=== PATIENT | female | born 1985 | race Caucasian/White ===

== ENCOUNTER 2016-06-24 18:38 | Emergency (ER) | payer SELFPAY ==
--- NOTE | 2016-06-24 20:46 | ED NURSING NOTES ---
Clinical Report - Nurses [facility] [place] [address] 06/24/2016 18:38 Patient: JUDY ASCENCIO TRIAGE Acuity: LEVEL 4. Chief Complaint: INJURY TO LEFT SHOULDER. Alert. No acute distress. SEPSIS SCREEN: Sepsis Screen. Negative (no infection suspected/documented). SHAE COMA SCORE: Shae Coma Scale: 15- eyes open spontaneously (4); best verbal response- oriented x 4 (5); best motor response- obeys commands (6). --18:59 Gisela Mckeon R.N. 18:51 06/24/16. BP: 143/87. HR: 87. RR: 16. O2 saturation: 100% on room air. Temp: 98.1 F (oral). Pain level now: 10/07. --18:59 Gisela Mckeon R.N. Weight: 88.4 kg stated. Height/Length: 66 inches Per Patient. BMI: 31.5. --18:56 Gisela Mckeon R.N. Medications Zoloft Oral 25 mg, at bedtime (unsure of dose). --18:54 Gisela Mckeon R.N. Medication/allergy information source: the patient. --18:59 Gisela Mckeon R.N. Allergies Demerol. --18:54 Gisela Mckeon R.N. History Arrived by private vehicle. Historian: patient. Accompanied by friend. Primary physician (Sandie Rocha). This occurred just prior to arrival. ( Pt reports pain from her left shoulder to her hand. She denies injury. Pt reports a history of anxiety and recently was started on welbutrin, but stopped taking it after two doses, last dose four days ago. Pt denies chest pain, but states chest feels "tight".). SOCIAL HX: Current every day heavy tobacco smoker (cigarette)- less than 1 pack per day. Occasional alcohol use. No drug use. FALL RISK ASSESSMENT: Fall risk assessment completed. No fall risk identified. NUTRITIONAL RISK ASSESSMENT: The nutritional risk assessment revealed no deficiencies. FUNCTIONAL ASSESSMENT: Functional assessment: no impairments noted. LEARNING NEEDS ASSESSMENT: The learning needs assessment revealed no barriers. SKIN INTEGRITY ASSESSMENT: Skin integrity risk assessment completed. No skin integrity risk identified. --18:59 Gisela Mckeon R.N. PROBLEMS: Anxiety Reaction. Atypical Chest Pain. Gastritis. Back Pain. Hypertension. --18:54 Gisela Mckeon R.N. ADDITIONAL SURGERIES: Cholecystectomy. --18:54 Gisela Mckeon R.N. Assessment GENERAL / NEURO / PSYCH: Alert. Oriented X 4. Appears in no acute distress. Patient appears calm and cooperative. RESPIRATORY: Respirations not labored. CVS: Capillary refill less than 2 seconds. GI / : Abdomen nontender. SKIN: Mucous membranes are pink. Skin is warm and dry. --18:59 Gisela Mckeon R.N. Interventions ID band on patient. To treatment room. --18:59 Gisela Mckeon R.N. PHYSICAL ASSESSMENT 18:59 06/24/16. Ambulatory to room. GENERAL / NEURO / PSYCH: Oriented X 4. Alert. Appears in no acute distress. EXTREMITIES: Capillary refill is less than 2 seconds in the extremities. Extremity pulses are within normal limits. Extremities exhibit normal ROM. Neuro-vascular status intact to the extremity. SKIN: Skin intact. Skin is warm and dry. --18:59 Gisela Mckeon R.N. NURSING PROGRESS NOTES 18:06/24/16. Patient gowned. Two patient identifiers checked. Call light placed in reach. Side rails up x 1. Bed placed in lowest position. Brakes of bed on. Patient ready for evaluation- chart flagged and PA notified. --18:59 Gisela Mckeon R.N. EKG time: (19:11). EKG was performed by a tech and shown to the PA. --19:12 Darshana Ace Checked patient name and birthdate: patient confirmed. Instructions provided to collect clean catch urine and patient verbalized understanding. Clean catch urine collected with return of yellow-colored clear urine; sample sent to lab for urinalysis and drug screen. Specimen labeled in the presence of the patient. --19:21 Gisela Mckeon R.N. 19:06/24/16. Urine test negative. --19:22 Gisela Mckeon R.N. 19:58 06/24/2016 Site #1 started via IV in the right hand with an 20g angiocath; one attempt. Blood drawn: rainbow set. Labeled in the presence of the patient and sent to the lab. Saline lock flushed. --19:58 Paige Braden R.N. Patient waiting for evaluation and lab and radiology results. --20:41 Paige Braden R.N. 21:05 06/24/2016 Site #1 removed upon discharge. Bandaid applied. --22:27 Paige Braden R.N. DISPOSITION / DISCHARGE Departure time: 21:Jun 24 2016. --22:28 Paige Braden R.N. 22:27 06/24/16. BP: 119/56. HR: 73. RR: 18. O2 saturation: 100%. Pain level now 0/10. --22:28 Paige Braden R.N. Locked/Released at 06/24/2016 22:36 by Paige Braden R.N.
--- NOTE | 2016-06-24 20:46 | ED CLINICAL REPORT ---
Clinical Report - Physicians/Mid Levels [facility] [address] [place] [address] 06/24/2016 18:38 Patient: JUDY ASCENCIO Time Seen: 19:04 Jun 24 2016. Arrived- By private vehicle. Historian- patient. HISTORY OF PRESENT ILLNESS Chief Complaint: left arm paresthesias. This started today and is still present. No fatigue. Denies sleep problem. (Patient reports developing left arm hand paresthesias in the last few hours. With no activity. Denies any injury. Denies any history of similar. Denies any history of DVT, pulmonary concerns. Denies any family history of sudden or history of DE at young age or any history of DE in general. Denies any prior injuries to her neck or any other injuries to her elbow. Denies any pain with movement. Denies any shortness of breath or chest pain. Denies any back pain. Denies any headache or neck pain or jaw pain. Denies any recent illness or difficulty swallowing.). REVIEW OF SYSTEMS No sore throat, sinus drainage, cough, difficulty breathing or vomiting. No diarrhea, back pain or calf pain. All systems otherwise negative, except as recorded above. PAST HISTORY Problems: Anxiety Reaction. Atypical Chest Pain. Gastritis. Back Pain. Hypertension. LNMP - Last Normal Menstrual Period. Additional Surgeries: Cholecystectomy. Medications: Zoloft Oral 25 mg, at bedtime (unsure of dose). Allergies: Demerol. SOCIAL HISTORY Smoker- current status unknown. Alcohol use. ADDITIONAL NOTES The nursing notes have been reviewed. PHYSICAL EXAM Vital Signs: 06/24/2016 18:51 BP: 143/87. HR: 87. RR: 16. O2 saturation: 100%. Temp: 98.1 F. Pain level now: 7/10. Appearance: Alert. Eyes: Eyes normal inspection. ENT: Nose normal. Pharynx normal. Neck: Normal inspection. No lymphadenopathy. CVS: Normal heart rate and rhythm. Heart sounds normal. Rhythm normal. Respiratory: No respiratory distress. Breath sounds normal. Abdomen: No visible injury. Soft. Bowel sounds normal. No abdominal tenderness. The bowel sounds are not abnormal. Back: Normal inspection. No CVA tenderness. Skin: Normal skin color. Neuro: Oriented X 3. No alteration in mental status. No motor deficit. No sensory deficit. LABS, X-RAYS, AND EKG EKG: EKG time: (1910). No acute process. No acute ischemia. Rate: 74. Normal P waves. Normal TORRIE. Normal QRS complex. Normal axis. Normal ST and T waves and QT. The study has been interpreted contemporaneously. The EKG appears to be a good tracing. Chest X-ray: No acute disease. Normal lung markings present. Normal heart size. No fracture. No infiltrate, mass or pulmonary contusion. Laboratory Tests: CBC w Diff: (ALEX: 06/24/2016 19:50) ( [facility] 06/24/2016 20:01) Final results Test Result Flag Units (Reference) WHITE BLOOD COUNT 12.3 H K/uL (4.5-11.5) RED BLOOD COUNT 4.35 M/uL (4.00-5.20) HEMOGLOBIN 12.8 gm/dL (12.0-16.0) HEMATOCRIT 38.6 % (36.0-46.0) MEAN CELL VOLUME 89 fL (80-100) MEAN CORPUSCULAR HGB 29 pg (26-34) MEAN CORPUSCULAR HGB CONC 33 g/dL (31-37) RED CELL DISTRIBUTION WIDTH 12.8 % (11.6-14.8) PLATELET COUNT 320 K/uL (150-400) LYMPH % 25.5 % (25-40) MONO % 4.8 % (3-14) GRANULOCYTE % 69.7 (53-90) Urine Drug Screen: (ALEX: 06/24/2016 19:25) ( [facility] 06/24/2016 20:00) Final results Test Result Flag Units (Reference) AMPHETAMINE/METHAMPHETAMINE NEGATIVE (NEGATIVE) BARBITURATE NEGATIVE (NEGATIVE) BENZODIAZEPINE NEGATIVE (NEGATIVE) CANNABINOID POSITIVE H (NEGATIVE) COCAINE NEGATIVE (NEGATIVE) ECSTASY NEGATIVE (NEGATIVE) METHADONE NEGATIVE (NEGATIVE) OPIATE NEGATIVE (NEGATIVE) The urine drug screen is a qualitative screening test fordrug overdose and abuse. All screen results should beconsidered as presumptive.Drugs screened for are as follows:BenzodiazepinesCocaineAmphetamines/MetamphetaminesTHC (Tetrahydrocannabinol)OpiatesBarbituratesEcstasyMethadonePositive results are unconfirmed. For confirmation, notifythe lab for the specimen to be sent to the reference lab.All confirmations must be performed by a differentmethodology.The ingestion of natural herbal and plant productscontaining Ephedra/Ephedra metabolites can produce in urineone or more substances capable of cross reacting withamphetamine/methamphetamine immunoassays. These testsprovide a preliminary result only. A more specificalternative chemical method must be used to obtain aconfirmed analytical result. CHEM 13 PANEL: (ALEX: 06/24/2016 19:50) ( M[facility] 06/24/2016 20:30) Final results Test Result Flag Units (Reference) GLUCOSE 83 mg/dL (70-110) BUN 14 mg/dL (7-18) CREATININE 0.6 mg/dL (0.6-1.3) Estimated GFR >60 mL/min Estimated GFR- >60 mL/min Note: Persistent reduction over 3 months in eGFR<60 mL/min/1.73 m2 defines CKD. Patients with eGFR values>=60 mL/min/1.73 m2 may also have CKD if evidence ofpersistent proteinuria. Additional information may be foundat www.kidney.org. SODIUM 146 H mmol/L (136-145) POTASSIUM 3.2 L mmol/L (3.5-5.1) CHLORIDE 110 H mmol/L (98-107) CARBON DIOXIDE 22 mmol/L (21-32) CALCIUM 7.7 L mg/dL (8.5-10.1) TOTAL PROTEIN 6.4 g/dL (6.4-8.2) ALBUMIN 3.4 g/dL (3.3-5.0) BILIRUBIN, TOTAL 0.2 mg/dL (0.0-1.0) ALKALINE PHOSPHATASE 61 U/L (46-116) AST (SGOT) 13 L U/L (15-37) ALT (SGPT) 22 U/L (12-78) CPK 84 U/L (24-260) MAGNESIUM 1.5 L mg/dL (1.8-2.4) TROPONIN I <0.05 ng/mL (0.00-1.5) TROPONIN REFERENCE RANGE:<0.1 NEGATIVE0.1-1.5 INDETERMINANT>1.5 POSITIVE . PROGRESS AND PROCEDURES Course of Care: Normal cardiac patient, with the seizures of the left arm today. Her only risk factor is smoking. Pt with no cv sx, afebrile, no signs of infectious origin, lowest risk factor. TO f/u outpatient. Pt normatensive, no pain, however only distal to elbow paresthesias, with a neg exam including tinel/phalen sign. 22:36. 06/24/2016 18:51 BP: 143/87. HR: 87. RR: 16. O2 saturation: 100%. Temp: 98.1 F. Pain level now: 7/10. Symptoms better. Patient/family counseled. Differential Diagnosis: I considered muscle strain, costochondritis, pleurisy, epidemic pleurodynia, intercostal neuritis, herpes zoster, myocardial infarction, intermediate coronary syndrome, aortic dissection, pulmonary embolism, pneumonia, pneumothorax, gastroesophageal reflux disease and esophagitis as a possible cause of chest pain in this patient. This is a partial list of diagnoses considered. Disposition: Discharged. CLINICAL IMPRESSION Paresthesia Hypocalcemia. Hypokalemia Hypomagnesemia. INSTRUCTIONS Do not work tomorrow. Warnings: GENERAL WARNINGS: Return or contact your physician immediately if your condition worsens or changes unexpectedly, if not improving as expected, or if other problems arise. Prescription Medications: Klor-Con 10 mEq: take 2 tablets orally every 8 hours. Dispense twenty (20). No refills. OTC Medications: Slow Mag (available over the counter): take 1 orally every 8 hours for 3 days. Dispense ten (10). No refills. Calcium Carbonate chewable tabs 500 mg (available over the counter): chew and swallow 1 tab every 8 hours for 5 days. Dispense forty (40). No refill. Follow-up: Follow up with your doctor in two days. (Electronically signed by Emelina Max P.A.-C 06/24/2016 21:15)
--- NOTE | 2016-06-24 20:46 | ED CLINICAL REPORT ---
Clinical Report - Physicians/Mid Levels [facility] [address] [place] [address] 06/24/2016 18:38 Patient: JUDY ASCENCIO Time Seen: 19:04 Jun 24 2016. Arrived- By private vehicle. Historian- patient. HISTORY OF PRESENT ILLNESS Chief Complaint: left arm paresthesias. This started today and is still present. No fatigue. Denies sleep problem. (Patient reports developing left arm hand paresthesias in the last few hours. With no activity. Denies any injury. Denies any history of similar. Denies any history of DVT, pulmonary concerns. Denies any family history of sudden or history of CA at young age or any history of CA in general. Denies any prior injuries to her neck or any other injuries to her elbow. Denies any pain with movement. Denies any shortness of breath or chest pain. Denies any back pain. Denies any headache or neck pain or jaw pain. Denies any recent illness or difficulty swallowing.). REVIEW OF SYSTEMS No sore throat, sinus drainage, cough, difficulty breathing or vomiting. No diarrhea, back pain or calf pain. All systems otherwise negative, except as recorded above. PAST HISTORY Problems: Anxiety Reaction. Atypical Chest Pain. Gastritis. Back Pain. Hypertension. LNMP - Last Normal Menstrual Period. Additional Surgeries: Cholecystectomy. Medications: Zoloft Oral 25 mg, at bedtime (unsure of dose). Allergies: Demerol. SOCIAL HISTORY Smoker- current status unknown. Alcohol use. ADDITIONAL NOTES The nursing notes have been reviewed. PHYSICAL EXAM Vital Signs: 06/24/2016 18:51 BP: 143/87. HR: 87. RR: 16. O2 saturation: 100%. Temp: 98.1 F. Pain level now: 7/10. Appearance: Alert. Eyes: Eyes normal inspection. ENT: Nose normal. Pharynx normal. Neck: Normal inspection. No lymphadenopathy. CVS: Normal heart rate and rhythm. Heart sounds normal. Rhythm normal. Respiratory: No respiratory distress. Breath sounds normal. Abdomen: No visible injury. Soft. Bowel sounds normal. No abdominal tenderness. The bowel sounds are not abnormal. Back: Normal inspection. No CVA tenderness. Skin: Normal skin color. Neuro: Oriented X 3. No alteration in mental status. No motor deficit. No sensory deficit. LABS, X-RAYS, AND EKG EKG: EKG time: (1910). No acute process. No acute ischemia. Rate: 74. Normal P waves. Normal TORRIE. Normal QRS complex. Normal axis. Normal ST and T waves and QT. The study has been interpreted contemporaneously. The EKG appears to be a good tracing. Chest X-ray: No acute disease. Normal lung markings present. Normal heart size. No fracture. No infiltrate, mass or pulmonary contusion. Laboratory Tests: CBC w Diff: (ALEX: 06/24/2016 19:50) ( [facility] 06/24/2016 20:01) Final results Test Result Flag Units (Reference) WHITE BLOOD COUNT 12.3 H K/uL (4.5-11.5) RED BLOOD COUNT 4.35 M/uL (4.00-5.20) HEMOGLOBIN 12.8 gm/dL (12.0-16.0) HEMATOCRIT 38.6 % (36.0-46.0) MEAN CELL VOLUME 89 fL (80-100) MEAN CORPUSCULAR HGB 29 pg (26-34) MEAN CORPUSCULAR HGB CONC 33 g/dL (31-37) RED CELL DISTRIBUTION WIDTH 12.8 % (11.6-14.8) PLATELET COUNT 320 K/uL (150-400) LYMPH % 25.5 % (25-40) MONO % 4.8 % (3-14) GRANULOCYTE % 69.7 (53-90) Urine Drug Screen: (ALEX: 06/24/2016 19:25) ( [facility] 06/24/2016 20:00) Final results Test Result Flag Units (Reference) AMPHETAMINE/METHAMPHETAMINE NEGATIVE (NEGATIVE) BARBITURATE NEGATIVE (NEGATIVE) BENZODIAZEPINE NEGATIVE (NEGATIVE) CANNABINOID POSITIVE H (NEGATIVE) COCAINE NEGATIVE (NEGATIVE) ECSTASY NEGATIVE (NEGATIVE) METHADONE NEGATIVE (NEGATIVE) OPIATE NEGATIVE (NEGATIVE) The urine drug screen is a qualitative screening test fordrug overdose and abuse. All screen results should beconsidered as presumptive.Drugs screened for are as follows:BenzodiazepinesCocaineAmphetamines/MetamphetaminesTHC (Tetrahydrocannabinol)OpiatesBarbituratesEcstasyMethadonePositive results are unconfirmed. For confirmation, notifythe lab for the specimen to be sent to the reference lab.All confirmations must be performed by a differentmethodology.The ingestion of natural herbal and plant productscontaining Ephedra/Ephedra metabolites can produce in urineone or more substances capable of cross reacting withamphetamine/methamphetamine immunoassays. These testsprovide a preliminary result only. A more specificalternative chemical method must be used to obtain aconfirmed analytical result. CHEM 13 PANEL: (ALEX: 06/24/2016 19:50) ( MsgRcvd 06/24/2016 20:30) Final results Test Result Flag Units (Reference) GLUCOSE 83 mg/dL (70-110) BUN 14 mg/dL (7-18) CREATININE 0.6 mg/dL (0.6-1.3) Estimated GFR >60 mL/min Estimated GFR- >60 mL/min Note: Persistent reduction over 3 months in eGFR<60 mL/min/1.73 m2 defines CKD. Patients with eGFR values>=60 mL/min/1.73 m2 may also have CKD if evidence ofpersistent proteinuria. Additional information may be foundat www.kidney.org. SODIUM 146 H mmol/L (136-145) POTASSIUM 3.2 L mmol/L (3.5-5.1) CHLORIDE 110 H mmol/L (98-107) CARBON DIOXIDE 22 mmol/L (21-32) CALCIUM 7.7 L mg/dL (8.5-10.1) TOTAL PROTEIN 6.4 g/dL (6.4-8.2) ALBUMIN 3.4 g/dL (3.3-5.0) BILIRUBIN, TOTAL 0.2 mg/dL (0.0-1.0) ALKALINE PHOSPHATASE 61 U/L (46-116) AST (SGOT) 13 L U/L (15-37) ALT (SGPT) 22 U/L (12-78) CPK 84 U/L (24-260) MAGNESIUM 1.5 L mg/dL (1.8-2.4) TROPONIN I <0.05 ng/mL (0.00-1.5) TROPONIN REFERENCE RANGE:<0.1 NEGATIVE0.1-1.5 INDETERMINANT>1.5 POSITIVE . PROGRESS AND PROCEDURES Course of Care: Normal cardiac patient, with the seizures of the left arm today. Her only risk factor is smoking. Pt with no cv sx, afebrile, no signs of infectious origin, lowest risk factor. TO f/u outpatient. Pt normatensive, no pain, however only distal to elbow paresthesias, with a neg exam including tinel/phalen sign. 22:36. 06/24/2016 18:51 BP: 143/87. HR: 87. RR: 16. O2 saturation: 100%. Temp: 98.1 F. Pain level now: 7/10. Symptoms better. Patient/family counseled. Differential Diagnosis: I considered muscle strain, costochondritis, pleurisy, epidemic pleurodynia, intercostal neuritis, herpes zoster, myocardial infarction, intermediate coronary syndrome, aortic dissection, pulmonary embolism, pneumonia, pneumothorax, gastroesophageal reflux disease and esophagitis as a possible cause of chest pain in this patient. This is a partial list of diagnoses considered. Disposition: Discharged. CLINICAL IMPRESSION Paresthesia Hypocalcemia. Hypokalemia Hypomagnesemia. INSTRUCTIONS Do not work tomorrow. Warnings: GENERAL WARNINGS: Return or contact your physician immediately if your condition worsens or changes unexpectedly, if not improving as expected, or if other problems arise. Prescription Medications: Klor-Con 10 mEq: take 2 tablets orally every 8 hours. Dispense twenty (20). No refills. OTC Medications: Slow Mag (available over the counter): take 1 orally every 8 hours for 3 days. Dispense ten (10). No refills. Calcium Carbonate chewable tabs 500 mg (available over the counter): chew and swallow 1 tab every 8 hours for 5 days. Dispense forty (40). No refill. Follow-up: Follow up with your doctor in two days. (Electronically signed by Emelina Max P.A.-C 06/24/2016 21:15)
--- NOTE | 2016-06-24 20:46 | ED ORDER SUMMARY ---
..... Patient: JUDY ASCENCIO OrderSheet [facility] VisitID: [id number] [place] [address] 31y, F Registration Date/Time: 06/24/2016 ORDER SHEET Weight: 88.4 kg (stated) Allergies: Demerol GENERAL ORDERS: Chest 2V Urgent (19:00 06/24/2016 EKoroleva P.A.-C) (Ack 19:02 KHoerner) (19:23 MWinterer R.N.) Loom Fixer Supervisor (Continuous) (19:00 06/24/2016 EKoroleva P.A.-C) (19:02 MWinterer R.N.) Cardiac Panel Stat (19:00 06/24/2016 EKoroleva P.A.-C) (Ack 19:02 KHoerner) (19:58 SBalde R.N.) Urine Urgent (19:00 06/24/2016 EKoroleva P.A.-C) (Ack 19:02 KHoerner) (Cancelled: Other19:20 MWinterer R.N.) Urine Drug Screen Urgent (19:00 06/24/2016 EKoroleva P.A.-C) (Ack 19:02 KHoerner) (19:21 MWinterer R.N.) EKG - ER Stat (19:00 06/24/2016 EKoroleva P.A.-C) (Ack 19:10 KHoerner) (19:10 KHoerner) MEDICATION ORDERS: IV FLUIDS: IV Saline Lock (19:00 06/24/2016 EKoroleva P.A.-C) (Ack 19:08 MWinterer R.N.) (19:58 SBalde R.N.) ORDER SHEET NOTES: [Electronically signed by Emelina Max P.A.-C (21:15 06/24/2016)] [Electronically signed by Paige Braden R.N. (22:36 06/24/2016)] [Electronically locked/signed by Paige Braden R.N. (22:36 06/24/2016)]
--- NOTE | 2016-06-24 20:46 | ED ORDER SUMMARY ---
..... Patient: JUDY ASCENCIO OrderSheet [facility] VisitID: [id number] [place] [address] 31y, F Registration Date/Time: 06/24/2016 ORDER SHEET Weight: 88.4 kg (stated) Allergies: Demerol GENERAL ORDERS: Chest 2V Urgent (19:00 06/24/2016 EKoroleva P.A.-C) (Ack 19:02 KHoerner) (19:23 MWinterer R.N.) Nougat Cutter Machine (Continuous) (19:00 06/24/2016 EKoroleva P.A.-C) (19:02 MWinterer R.N.) Cardiac Panel Stat (19:00 06/24/2016 EKoroleva P.A.-C) (Ack 19:02 KHoerner) (19:58 SBalde R.N.) Urine Urgent (19:00 06/24/2016 EKoroleva P.A.-C) (Ack 19:02 KHoerner) (Cancelled: Other19:20 MWinterer R.N.) Urine Drug Screen Urgent (19:00 06/24/2016 EKoroleva P.A.-C) (Ack 19:02 KHoerner) (19:21 MWinterer R.N.) EKG - ER Stat (19:00 06/24/2016 EKoroleva P.A.-C) (Ack 19:10 KHoerner) (19:10 KHoerner) MEDICATION ORDERS: IV FLUIDS: IV Saline Lock (19:00 06/24/2016 EKoroleva P.A.-C) (Ack 19:08 MWinterer R.N.) (19:58 SBalde R.N.) ORDER SHEET NOTES: [Electronically signed by Emelina Max P.A.-C (21:15 06/24/2016)] [Electronically signed by Paige Braden R.N. (22:36 06/24/2016)] [Electronically locked/signed by Paige Braden R.N. (22:36 06/24/2016)]
--- NOTE | 2016-06-24 21:11 | DIAGNOSTIC IMAGING REPORT ---
PROCEDURE: XR CHEST 2 VIEW INDICATION: CHEST PAIN TECHNIQUE: Two views. COMPARISON: It is 11/30/2015 FINDINGS: The cardiomediastinal contour and central vasculature are within normal limits. Chronic parenchymal scarring lateral left lower lung. The lungs are otherwise clear without focal consolidation, pleural effusion, or pneumothorax. The visualized osseous structures are intact. Surgical clips in the gallbladder fossa. IMPRESSION: 1. Chronic left lower lung parenchymal scarring. 2. Otherwise normal chest.
--- NOTE | 2016-06-24 22:36 | ED MED RECONCILIATION SUMMARY ---
Patient: JUDY ASCENCIO Medication Reconciliation Report [facility] VisitID: [id number] [address] [place] [address] 31y, F Registration Date/Time: 06/24/2016 Weight: 88.4 kg Height/Length: 66 in. BMI: 31.5 ALLERGIES: Demerol The patient's Home Medications are listed below: THE FOLLOWING MEDICATIONS NEED TO BE RECONCILED: Zoloft Oral 25 mg, at bedtime, unsure of dose The source(s) of the original Home Medication information: patient The following Medications were given to the patient in the Emergency Department: None. The following Medications were prescribed to the patient: Klor-Con 10 mEq: take 2 tablets orally every 8 hours. Dispense twenty (20). No refills. -- Emelina Max, P.A.-C Slow Mag (available over the counter): take 1 orally every 8 hours for 3 days. Dispense ten (10). No refills. -- Emelina Max, P.A.-C Calcium Carbonate chewable tabs 500 mg (available over the counter): chew and swallow 1 tab every 8 hours for 5 days. Dispense forty (40). No refill. -- Emelina Max, P.A.-C
--- NOTE | 2016-06-24 22:36 | ED DISCHARGE INSTRUCTIONS ---
Patient: JUDY ASCENCIO General Instructions [facility] VisitID: [id number] [place] [address] 31y, F Registration Date/Time: 06/24/2016 Paresthesia Hypocalcemia. Hypokalemia Hypomagnesemia. INSTRUCTIONS Do not work tomorrow. Warnings: GENERAL WARNINGS: Return or contact your physician immediately if your condition worsens or changes unexpectedly, if not improving as expected, or if other problems arise. Prescription Medications: Klor-Con 10 mEq: take 2 tablets orally every 8 hours. Dispense twenty (20). No refills. OTC Medications: Slow Mag (available over the counter): take 1 orally every 8 hours for 3 days. Dispense ten (10). No refills. Calcium Carbonate chewable tabs 500 mg (available over the counter): chew and swallow 1 tab every 8 hours for 5 days. Dispense forty (40). No refill. Follow-up: Follow up with your doctor in two days. ADDITIONAL INFORMATION Paraesthesias Paraesthesia refers to a burning or prickling sensation that is sometimes felt in the hands, arms, legs or feet. It can also occur in other parts of the body. It can also feel like tingling or numbness, skin crawling or itching.The sensation is usually painless. Most people have experienced pins and needles. This feeling happens when legs have been crossed for too long and pressure is placed on a nerve. This is a temporary paraesthesia. It quickly goes away once the pressure is relieved. There are many possible causes for chronic paraesthesias. These include such disorders as stroke, herniated disk (pressing on a nerve), trapped nerve in the shoulder, elbow or wrist (such as carpal tunnel syndrome), vitamin deficiencies or even certain medicines. Laboratory tests are needed to make an accurate diagnosis. These tests may include blood tests, X-ray, CT (computerized tomography) scan or a muscle test (electromyography).Depending on the cause, treatment may include physical therapy. Home Care: Do not make any changes to your medicines without advice from your doctor. If vitamins have been prescribed, remember to take them daily at the recommended dose. Because of a decrease in feeling, a numb hand or foot may be more prone to injury. Take care to protect these areas from cuts, bumps, bruises, davila or other injury. Keep your nails trimmed and wash your hands and feet often. Wear shoes that fit well to avoid pressure points, blisters and ulcers. Look at your hands and feet carefully (including the soles of your feet and between your toes) at least once a week and notify your doctor of any open wounds or signs of infection. Follow Up with your doctor or as advised by our staff. You may need further testing to determine the exact cause of your paraesthesia. [NOTE: If blood tests, X-ray, CT scan or electromyography were done, specialists will review them. You will be notified of any new findings that may affect your care.] Get Prompt Medical Attention if any of the following occur: Numbness or weakness of the face, one arm or one leg Slurred speech, confusion, trouble speaking, walking or seeing Severe headache, fainting spell, dizziness or seizure Chest, arm, neck or upper back pain Loss of bladder or bowel control Open wound with redness, swelling or pus Hypokalemia Hypokalemia means a low level of potassium in the blood. This most often occurs in patients who take diuretics (water pills). It can also occur due to severe vomiting or diarrhea. A mild case usually causes no symptoms. It is only found with blood testing. More severe potassium loss causes generalized weakness, muscle or abdominal cramping, heart palpitations (rapid or irregular heartbeats) and low blood pressure. Home Care: 1) Take any potassium supplements prescribed. 2) Eat foods rich in potassium. The highest amount is found in artichoke, baked potatoes, spinach, cantaloupe, honeydew melon, cod, halibut, salmon, and scallops. White, red, or godoy beans are also very good sources. A modest amount is found in orange juice, bananas, carrots, and tomato juice. 3) Certain types of diuretics (water pills), such as Lasix (furosemide), require that you take potassium supplements for as long as you take the diuretic pills. If you are taking a diuretic, discuss the need for potassium supplements with your doctor. Follow Up with your doctor for a repeat blood test within the next week or as advised by our staff. Get Prompt Medical Attention if any of the following occur: -- Increased weakness -- Feeling dizzy -- Irregular heartbeat, extra beats or very fast heart rate -- Fainting spell Calcium Carbonate Oral tablet What is this medicine? CALCIUM CARBONATE (SASHA see um ROXIE krishnamurthy ate) is a calcium salt. It is used as an antacid to relieve the symptoms of indigestion and heartburn. It is also used to prevent osteoporosis, as a calcium supplement, and to treat high phosphate levels in patients with kidney disease. How should I use this medicine? Take this medicine by mouth with a glass of water. Follow the directions on the label. Antacids are usually taken after meals and at bedtime, or as directed by your doctor or health critical care nurse. Take your medicine at regular intervals. Do not take your medicine more often than directed. Talk to your printed circuit boards contact printer regarding the use of this medicine in children. While this medicine may be used in children for selected conditions, precautions do apply. What side effects may I notice from receiving this medicine? Side effects that you should report to your doctor or health critical care nurse as soon as possible: allergic reactions like skin rash, itching or hives, swelling of the face, lips, or tongue confusion or irritability headache loss of appetite nausea, vomiting unusually weak or tired Side effects that usually do not require medical attention (report to your doctor or health critical care nurse if they continue or are bothersome): constipation stomach gas What may interact with this medicine? Do not take this medicine with any of the following medications: ammonium chloride methenamine This medicine may also interact with the following medications: antibiotics like ciprofloxacin, tetracycline captopril delavirdine gabapentin iron supplements medicines for fungal infections like ketoconazole and itraconazole medicines for seizures like ethotoin and phenytoin mycophenolate quinidine rosuvastatin sucralfate thyroid medicine What if I miss a dose? If you miss a dose, take it as soon as you can. If it is almost time for your next dose, take only that dose. Do not take double or extra doses. Where should I keep my medicine? Keep out of the reach of children. Store at room temperature between 15 and 30 degrees C (59 and 86 degrees F). Throw away any unused medicine after the expiration date. What should I tell my health care provider before I take this medicine? They need to know if you have any of these conditions: constipation dehydration high blood calcium levels kidney disease stomach bleeding, obstruction or ulcer an unusual or allergic reaction to calcium carbonate, other medicines, foods, dyes, or preservatives or trying to get breast-feeding What should I watch for while using this medicine? Tell your doctor or healthcare professional if your symptoms do not start to get better or if they get worse. Do not treat yourself for stomach problems with this medicine for more than 2 weeks. See a doctor if you have black tarry stools, rectal bleeding, or if you feel unusually tired. Do not change to another antacid product without advice. If you are taking other medicines, leave an interval of at least 2 hours before or after taking this medicine. To help reduce constipation, drink several glasses of water a day. You have been given the following additional information: Paraesthesias Hypokalemia Calcium Carbonate Oral tablet Do not work tomorrow. (Electronically signed by Emelina Max P.A.-C 06/24/2016 21:15)
--- NOTE | 2016-06-24 22:36 | ED MED RECONCILIATION SUMMARY ---
Patient: JUDY ASCENCIO Medication Reconciliation Report [facility] VisitID: [id number] [address] [place] [address] 31y, F Registration Date/Time: 06/24/2016 Weight: 88.4 kg Height/Length: 66 in. BMI: 31.5 ALLERGIES: Demerol The patient's Home Medications are listed below: THE FOLLOWING MEDICATIONS NEED TO BE RECONCILED: Zoloft Oral 25 mg, at bedtime, unsure of dose The source(s) of the original Home Medication information: patient The following Medications were given to the patient in the Emergency Department: None. The following Medications were prescribed to the patient: Klor-Con 10 mEq: take 2 tablets orally every 8 hours. Dispense twenty (20). No refills. -- Emelina Max, P.A.-C Slow Mag (available over the counter): take 1 orally every 8 hours for 3 days. Dispense ten (10). No refills. -- Emelina Max, P.A.-C Calcium Carbonate chewable tabs 500 mg (available over the counter): chew and swallow 1 tab every 8 hours for 5 days. Dispense forty (40). No refill. -- Emelina Max, P.A.-C
--- NOTE | 2016-06-24 22:36 | ED MAR SUMMARY ---
..... Medication Administration Record [facility] [address] [place], [place] [id number] Patient: JUDY ASCENCIO Visit ID: [id number] 31y, F Weight: 88.4 kg Height/Length: 66 in BMI: 31.5 ALLERGIES: Demerol
--- NOTE | 2016-06-24 22:36 | ED MAR SUMMARY ---
..... Medication Administration Record [facility] [address] [place] [place], [place] [id number] Patient: JUDY ASCENCIO Visit ID: [id number] 31y, F Weight: 88.4 kg Height/Length: 66 in BMI: 31.5 ALLERGIES: Demerol
== END 2016-06-24 21:05 | disposition home or self-care (01) ==
LOC: ED SRH 18:38
DX: R20.2 Paresthesia of skin (principal); E83.51 Hypocalcemia; E87.6 Hypokalemia; E83.42 Hypomagnesemia; I10 Essential (primary) hypertension; Z88.5 Allergy status to narcotic agent
CPT/HCPCS: 90100; 90616; 92610; 92720; 92760; 92761; 92762; 92763; 92764; 92765; 92766; 92767; 95059

== ENCOUNTER 2016-10-14 12:36 | Outpatient (CLI) | payer SELFPAY ==
--- NOTE | 2016-10-14 13:13 | DIAGNOSTIC IMAGING REPORT ---
PROCEDURE: XR SHOULDER 2 OR MORE VW-RIGHT INDICATION: CHEST PRESSURE TECHNIQUE: Three views. COMPARISON: None. FINDINGS: Osseous structures and joint spaces are normal. IMPRESSION: 1. Normal right shoulder.
--- NOTE | 2016-10-14 13:15 | DIAGNOSTIC IMAGING REPORT ---
PROCEDURE: XR CHEST 2 VIEW INDICATION: CHEST PRESSURE TECHNIQUE: PA and lateral views. COMPARISON: Chest 06/24/2016 and 11/30/2015 FINDINGS: The cardiomediastinal contour and central vasculature are within normal limits. Chronic parenchymal scarring lateral left lower lung. The lungs are otherwise clear without focal consolidation, pleural effusion, or pneumothorax IMPRESSION: 1. Negative chest.
== END 2016-10-14 23:00 ==
LOC: XR SRH 12:36
DX: R07.89 Other chest pain (principal)